=== PATIENT | male | born 1990 | race Caucasian/White ===

== ENCOUNTER 2016-10-31 18:10 | Emergency (ER) | payer OTHER ==
[~2016-10-31] VITALS: Ht 182.9 cm; Wt 96.0 kg
[~2016-10-31 18:10] MED LIST: ALPR1 PO; DICL50TA3 PO; METH10TA PO
[2016-10-31 18:16] VITALS: BP 107/80; PULSE 98; RESP 16; TEMP 97.6; O2SAT 98
[2016-10-31] MEDS ORDERED: LIDOCAINE 1%/EPINEPHrine 1:100,000 SOLN 20 ML VIAL INFIL ONE (18:45)
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
== END 2016-10-31 20:09 | disposition home or self-care (01) ==
LOC: PHEFT 18:10
DX: S81.812A Laceration without foreign body, left lower leg, initial encounter (principal); V28.0XXA Motorcycle driver injured in noncollision transport accident in nontraffic accident, initial encounter; W26.8XXA Contact with other sharp object(s), not elsewhere classified, initial encounter; Y92.410 Unspecified street and highway as the place of occurrence of the external cause; F17.210 Nicotine dependence, cigarettes, uncomplicated; F12.90 Cannabis use, unspecified, uncomplicated
CPT/HCPCS: 12002

== ENCOUNTER 2016-11-22 13:10 | Emergency (ER) | payer SELFPAY ==
[~2016-11-22] VITALS: Ht 180.3 cm; Wt 93.2 kg
[2016-11-22 13:12] VITALS: BP 126/88; PULSE 102; RESP 15; TEMP 97.8
[2016-11-22] MEDS ORDERED: CEPH-459 PO (13:36)
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
== END 2016-11-22 13:49 | disposition home or self-care (01) ==
LOC: PHEFT 13:10
DX: Z48.02 Encounter for removal of sutures (principal)
CPT/HCPCS: 99281